=== PATIENT | male | born 1975 | race Caucasian/White ===

== ENCOUNTER 2018-12-05 22:40 | Inpatient (IN) | payer OTHER ==
[~2018-12-05] VITALS: Ht 182.9 cm; Wt 140.6 kg
[2018-12-05 22:47] VITALS: BP 144/90
[2018-12-05] MEDS ORDERED: CYMBALTA20 MG PO (22:50)
[2018-12-05 23:50] LABS: ABSOLUTE BASOPHILS 0.1 thou/uL (0.0-0.2); ABSOLUTE LYMPHOCYTES 1.7 thou/uL (0.8-5.3); ABSOLUTE NEUTROPHILS 15.7 thou/uL (1.6-8.1); BASOPHILS 0.5 %; EOSINOPHILS 0.2 %; HEMATOCRIT 53.4 % (42.0-52.0); HEMOGLOBIN 18.1 gm/dL (14.0-18.0); MCH 29.2 pg (26.0-34.0); MCHC 33.8 g/dL (28.0-37.0); MCV 86.4 fL (80.0-100.0); MONOCYTES 5.6 %; MPV 8.5 fl. (7.2-11.1); NUCLEATED RBCS 0 /100WBC; PLATELET COUNT* 297 thou/uL (150-400); POLYS 84.7 %; RBC 6.18 mil/uL (4.50-6.00); RDW-CV 13.8 % (10.5-14.5); WBC 18.5 thou/uL (4.0-11.0)
[2018-12-05 23:59] LABS: CALCIUM 9.2 mg/dL (8.5-10.1); CREATININE 0.9 mg/dL (0.6-1.3); POTASSIUM 3.7 mmol/L (3.5-5.1)
[2018-12-06 00:05] LABS: ALBUMIN 4.1 g/dL (3.4-5.0); TOTAL BILIRUBIN 0.8 mg/dL (<0.1-1.0); TOTAL PROTEIN 7.9 g/dL (6.4-8.2)
--- NOTE | 2018-12-06 01:31 | NUR ---
REPORT GIVEN. PT BEING ADMITTED TO ROOM 107.
[2018-12-06 01:33] VITALS: BP 122/79
[2018-12-06 01:34] VITALS: BP 122/79
[2018-12-06 01:45] VITALS: BP 131/77
--- NOTE | 2018-12-06 05:00 | NUR ---
PATIENT ARRIVED ON FLOOR AT ABOUT 0130 FROM ER. PATIENT ADMISSION HISTORY AND ASSESSMENT WAS COMPLETED CHARTED. IV FLUIDS WERE STARTED ORDERED. PATIENT WAS GIVEN PAIN AND NAUSEA MEDICINE NEEDED. WILL CONTINUE TO MONITOR.
[2018-12-06 12:47] LABS: ABSOLUTE EOSINOPHILS 0.1 thou/uL (0.0-0.7); ABSOLUTE LYMPHOCYTES 1.5 thou/uL (0.8-5.3); ABSOLUTE MONOCYTES 1.1 thou/uL (0.0-1.2); ABSOLUTE NEUTROPHILS 11.6 thou/uL (1.6-8.1); BASOPHILS 0.3 %; EOSINOPHILS 0.4 %; HEMATOCRIT 51.7 % (42.0-52.0); HEMOGLOBIN 17.4 gm/dL (14.0-18.0); LYMPHOCYTES 10.8 %; MCH 29.3 pg (26.0-34.0); MCHC 33.6 g/dL (28.0-37.0); MCV 87.3 fL (80.0-100.0); MONOCYTES 7.7 %; MPV 8.4 fl. (7.2-11.1); NUCLEATED RBCS 0 /100WBC; PLATELET COUNT* 252 thou/uL (150-400); POLYS 80.8 %; RBC 5.92 mil/uL (4.50-6.00); RDW-CV 13.9 % (10.5-14.5); WBC 14.4 thou/uL (4.0-11.0)
[2018-12-06 12:58] LABS: ALBUMIN 3.5 g/dL (3.4-5.0); CALCIUM 8.5 mg/dL (8.5-10.1); CREATININE 0.8 mg/dL (0.6-1.3); MAGNESIUM 2.2 mg/dL (1.8-2.4); POTASSIUM 4.1 mmol/L (3.5-5.1); TOTAL BILIRUBIN 0.9 mg/dL (<0.1-1.0)
[2018-12-06 15:57] VITALS: BP 131/73
--- NOTE | 2018-12-06 17:26 | NUR ---
PT UP IN HALLS WITH STEADY GAIT. PT CONTINUES TO REPORT ABD PAIN. TOLERATING ONLY SMALL AMTS OF CLEAR LIQUIDS
[2018-12-07 02:05] LABS: GLYCOHEMOGLOBIN (HGB A1C) 5.2 % (4.8-5.6)
[2018-12-07 04:03] LABS: HEMATOCRIT 48.8 % (42.0-52.0); HEMOGLOBIN 16.1 gm/dL (14.0-18.0); MCH 29.1 pg (26.0-34.0); MPV 8.8 fl. (7.2-11.1); RBC 5.54 mil/uL (4.50-6.00); RDW-CV 13.9 % (10.5-14.5); WBC 13.3 thou/uL (4.0-11.0)
[2018-12-07 04:27] LABS: ALBUMIN 3.2 g/dL (3.4-5.0); ALKALINE PHOSPHATASE 54 U/L (46-116); ANION GAP 6 mmol/L (7-16); BUN 7 mg/dL (7-18); CALCIUM 8.3 mg/dL (8.5-10.1); CHLORIDE 102 mmol/L (98-107); CHOLESTEROL 119 mg/dL (<200); CO2 29 mmol/L (21-32); CREATININE 0.8 mg/dL (0.6-1.3); GLUCOSE 64 mg/dL (70-99); HDL CHOLESTEROL 23 mg/dL (>40); LDL CHOLESTEROL 85 mg/dL (<100); MAGNESIUM 2.2 mg/dL (1.8-2.4); POTASSIUM 3.6 mmol/L (3.5-5.1); SERUM ASSESSMENT CLEAR; SGOT 23 U/L (15-37); SGPT 35 U/L (30-65); SODIUM 137 mmol/L (136-145); TC:HDL 5.2 Ratio (Not establshd); TOTAL BILIRUBIN 1.2 mg/dL (<0.1-1.0); TOTAL PROTEIN 6.7 g/dL (6.4-8.2); TRIGLYCERIDE 55 mg/dL (<150); VLDL 11 mg/dL (<40)
--- NOTE | 2018-12-07 05:59 | NUR ---
PATIENT SLEPT PART OF THE NIGHT. PATIENT WAS GIVEN PAIN AND NAUSEA MEDICINE TWICE THIS SHIFT. PATIENT INSTRUCTED HE STILL IS ONLY TO BE MAINLY ICE CHIPS WITH A FEW SIPS NOT DRINKING ALOT OF WATER YET. WILL CONTINUE TO MONITOR.
[2018-12-07 07:59] VITALS: BP 122/63
[2018-12-07 09:33] LABS: DIRECT BILIRUBIN 0.2 mg/dL (<0.1-0.3); TOTAL BILIRUBIN 0.9 mg/dL (<0.1-1.0)
--- NOTE | 2018-12-07 16:41 | NUR ---
Pt lives in an apt with spouse and children. No DME. No known history of HH or SNF. SW to continue to follow to complete further assessment and assist with dc planning if needs arise.
[2018-12-07 17:06] VITALS: BP 127/72
--- NOTE | 2018-12-07 17:24 | NUR ---
PT A&Ox4. VITALS STABLE. UP AD KESHAWN. IV PATENT. MINIMAL PAIN, DENIED PAIN MEDS. DENIED NAUSEA. TOLERATING SOLID FOOD. CALL LIGHT WITHIN REACH. WILL CONTINUE TO MONITOR.
[2018-12-07 20:00] VITALS: BP 129/64
[2018-12-08 04:24] LABS: ALBUMIN 3.1 g/dL (3.4-5.0); CALCIUM 8.3 mg/dL (8.5-10.1); CREATININE 0.8 mg/dL (0.6-1.3); HEMATOCRIT 45.8 % (42.0-52.0); HEMOGLOBIN 15.4 gm/dL (14.0-18.0); MAGNESIUM 2.2 mg/dL (1.8-2.4); MCH 29.1 pg (26.0-34.0); MCHC 33.7 g/dL (28.0-37.0); MCV 86.5 fL (80.0-100.0); MPV 8.4 fl. (7.2-11.1); POTASSIUM 3.4 mmol/L (3.5-5.1); RBC 5.3 mil/uL (4.50-6.00); RDW-CV 13.6 % (10.5-14.5); TOTAL BILIRUBIN 0.6 mg/dL (<0.1-1.0); TOTAL PROTEIN 6.7 g/dL (6.4-8.2); WBC 11.5 thou/uL (4.0-11.0)
--- NOTE | 2018-12-08 06:10 | NUR ---
PT SLEPT WELL OVERNIGHT WITH FAMILY AT BEDSIDE. TEMP MAX 99.8 OVERNIGHT, TYLENOL GIVEN PER PT REQUEST. HYDROCODONE GIVEN X1 FOR CO ABD PAIN WITH GOOD RESULT. TOLERATING FLUIDS AND JELLO WITHOUT N/V. UP AD KESHAWN. IV SL R HAND. ABLE TO USE CALL LITE AND MAKE NEEDS KNOWN.
[2018-12-08] MEDS ORDERED: HYDROCODON-ACE1 EAC7 PO (08:19)
[2018-12-08 11:04] VITALS: BP 129/64
[2018-12-08 11:07] VITALS: BP 129/64
[2018-12-08 13:33] VITALS: BP 129/64
[2018-12-08 13:35] VITALS: BP 129/64
[2018-12-08 13:49] VITALS: BP 129/64
--- NOTE | 2018-12-08 14:48 | EKG ---
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
[2018-12-08 21:10] LABS: IgG 1010 mg/dL (700-1600)
[2018-12-09 11:11] LABS: ANA INTERPRETATION Negative (Negative)
== END 2018-12-08 13:45 | disposition home or self-care (01) | DRG 439 ==
LOC: M.ERS 22:40 → M.ORTHSURG 12-06 00:47 → M.TBA-ER 12-06 00:47 → M.ORTHSURG 12-06 01:42
PROVIDERS: Emergency Medicine; Internal Medicine; Internal Medicine Gastroenterology; ADMIT Family Medicine
DX: K85.90 Acute pancreatitis without necrosis or infection, unspecified (principal); R65.10 Systemic inflammatory response syndrome (SIRS) of non-infectious origin without acute organ dysfunction; M79.7 Fibromyalgia; E66.01 Morbid (severe) obesity due to excess calories; M47.819 Spondylosis without myelopathy or radiculopathy, site unspecified; K86.1 Other chronic pancreatitis; K29.80 Duodenitis without bleeding; K21.9 Gastro-esophageal reflux disease without esophagitis; E80.6 Other disorders of bilirubin metabolism; K64.9 Unspecified hemorrhoids; Z68.41 Body mass index [BMI] 40.0-44.9, adult; Z88.0 Allergy status to penicillin; Z90.49 Acquired absence of other specified parts of digestive tract; Z87.891 Personal history of nicotine dependence

== ENCOUNTER 2019-12-27 20:20 | Emergency (ER) | payer OTHER ==
[~2019-12-27] VITALS: Ht 188 cm; Wt 138.3 kg
[~2019-12-27 20:20] MED LIST: CYMBALTA20 MG PO; HYDROCODON-ACE1 EAC7 PO
[2019-12-27] MEDS ORDERED: NORCO 5-325 TA1 EAC2 PO (23:44)
[2019-12-27] MEDS ORDERED: IBUPROFEN 800800 M1 PO (23:44)
[2019-12-27] MEDS ORDERED: FLEXERIL PO (23:44)
[2019-12-27 23:55] VITALS: BP 148/80
== END 2019-12-27 23:55 | disposition home or self-care (01) ==
LOC: M.ERS 20:20
DX: S16.1XXA Strain of muscle, fascia and tendon at neck level, initial encounter (principal); E66.01 Morbid (severe) obesity due to excess calories; M79.7 Fibromyalgia; Z88.0 Allergy status to penicillin; Z79.899 Other long term (current) drug therapy; Z90.49 Acquired absence of other specified parts of digestive tract; V49.88XA Car occupant (driver) (passenger) injured in other specified transport accidents, initial encounter; Y93.89 Activity, other specified; Y92.413 State road as the place of occurrence of the external cause; Y99.9 Unspecified external cause status

== ENCOUNTER 2020-03-15 11:28 | Inpatient (IN) | payer OTHER ==
[~2020-03-15] VITALS: Ht 188 cm; Wt 144.7 kg
[~2020-03-15 11:28] MED LIST changes: +FLEXERIL PO; +IBUPROFEN 800800 M1 PO; +NORCO 5-325 TA1 EAC2 PO
[2020-03-15 11:38] VITALS: BP 139/71
[2020-03-15] MEDS ORDERED: LISINOPRIL10 MG (11:40)
[2020-03-15 11:58] LABS: ABSOLUTE EOSINOPHILS 0.1 thou/uL (0.0-0.7); ABSOLUTE MONOCYTES 0.8 thou/uL (0.0-1.2); ABSOLUTE NEUTROPHILS 8.8 thou/uL (1.6-8.1); BASOPHILS 0.4 %; EOSINOPHILS 0.6 %; HEMATOCRIT 50.1 % (42.0-52.0); HEMOGLOBIN 17.1 gm/dL (14.0-18.0); LYMPHOCYTES 17.2 %; MCH 30.2 pg (26.0-34.0); MCHC 34.2 g/dL (28.0-37.0); MCV 88.1 fL (80.0-100.0); MONOCYTES 6.5 %; MPV 8.9 fl. (7.2-11.1); NUCLEATED RBCS 0 /100WBC; PLATELET COUNT* 245 thou/uL (150-400); POLYS 75.3 %; RBC 5.68 mil/uL (4.50-6.00); WBC 11.7 thou/uL (4.0-11.0)
[2020-03-15 12:09] LABS: CALCIUM 9.8 mg/dL (8.5-10.1); CREATININE 0.8 mg/dL (0.6-1.3); POTASSIUM 3.8 mmol/L (3.5-5.1)
[2020-03-15 12:13] LABS: TOTAL BILIRUBIN 0.8 mg/dL (<0.1-1.0); TOTAL PROTEIN 7.9 g/dL (6.4-8.2)
[2020-03-15 13:38] LABS: URINE BILIRUBIN NEGATIVE (Negative); URINE BLOOD NEGATIVE (Negative); URINE CLARITY CLEAR; URINE COLOR YELLOW; URINE GLUCOSE-RANDOM NEGATIVE (Negative); URINE KETONES NEGATIVE (Negative); URINE LEUKOCYTES-REFLEX NEGATIVE (Negative); URINE NITRITE-REFLEX NEGATIVE (Negative); URINE PROTEIN NEGATIVE (Negative); URINE UROBILINOGEN 0.2 E.U./dl (0.2-1.0)
[2020-03-15 13:45] LABS: AMP/METHAMP Negative (Negative); BARBITURATES Negative (Negative); BENZODIAZEPINES Negative (Negative); COCAINE Negative (Negative); METHADONE Negative (Negative); OPIATES Negative (Negative); PCP Negative (Negative); THC Negative (Negative)
--- NOTE | 2020-03-15 16:36 | EKG ---
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1975 Requested By: Sabino Kirk Order Number: [id number] MD: Sarah Trevino Measurements Intervals [place] Rate: 77 P: 39 PA: 156 QRS: 84 QRSD: 96 T: -5 QT: 380 QTc: 431 Interpretive Statements Sinus rhythm Abnormal R-wave progression, late transition Borderline T abnormalities, inferior leads Baseline wander in lead(s) V2,V3,V4,V5,V6 Compared to ECG 12/05/2018 22:58:15 T-wave abnormality now present Electronically Signed On 03-15-2020 16:36:26 [employer] TEACH[employer] by Sarah Trevino [email or web address] <ELECTRONICALLY SIGNED> By: Sarah Trevino MD, [facility] 03/15/20 1636 1145 1145 Sarah Trevino MD, [facility] /EPI
[2020-03-15 17:51] VITALS: BP 138/70
[2020-03-15 20:00] VITALS: BP 130/70
[2020-03-15 20:23] VITALS: BP 159/86
[2020-03-16 04:46] LABS: HEMATOCRIT 47.5 % (42.0-52.0); HEMOGLOBIN 16.2 gm/dL (14.0-18.0); MCH 29.9 pg (26.0-34.0); MCV 87.9 fL (80.0-100.0); MPV 8.3 fl. (7.2-11.1); RBC 5.41 mil/uL (4.50-6.00); RDW-CV 13.8 % (10.5-14.5); WBC 14.7 thou/uL (4.0-11.0)
[2020-03-16 05:27] LABS: ALBUMIN 3.4 g/dL (3.4-5.0); CALCIUM 8.8 mg/dL (8.5-10.1); CREATININE 0.8 mg/dL (0.6-1.3); MAGNESIUM 2.1 mg/dL (1.8-2.4); POTASSIUM 3.3 mmol/L (3.5-5.1); TOTAL PROTEIN 7.4 g/dL (6.4-8.2)
--- NOTE | 2020-03-16 06:49 | NUR ---
ASSUMED CARE OF PT AT APPROX 2014. PT A&OX4, VSS ON ROOM AIR - CPAP WHILE SLEEPING, IV FLUIDS INFUSING ORDERED, PAIN MEDS REQUESTED AND GIVEN ORDERED, PT UP WITH ASSIST. HOURLY ROUNDINGS COMPLETE, WILL CONTINUE TO MONITOR.
[2020-03-16 08:59] VITALS: BP 135/84
--- NOTE | 2020-03-16 10:01 | NUR ---
Spoke to pt in his room. Pt lives with his and children. No DME hx or needs identified. No HH hx. Shared [employer] program and rep would be coming to interview him. Pt states his health insurance starts 03/17/20. Will follow until discharged for any new identified needs.
--- NOTE | 2020-03-16 17:30 | NUR ---
PT A&Ox4. VITALS STABLE. IV PATENT, INFUSING. ABD PAIN PARTIALLY CONTROLLED WITH MORPHINE. TYLENOL GIVEN FOR HEADACHE. UP AD KESHAWN. DENIED NAUSEA. NPO EXCEPT FOR MEDS. CALL LIGHT WITHIN REACH. WILL CONTINUE TO MONITOR.
[2020-03-16 21:09] VITALS: BP 132/67
[2020-03-17 03:06] LABS: HEPATITIS B SURFACE AG Negative (Negative)
[2020-03-17 04:04] LABS: HEMATOCRIT 41.3 % (42.0-52.0); MCH 30.2 pg (26.0-34.0); MCHC 34.2 g/dL (28.0-37.0); MCV 88.3 fL (80.0-100.0); MPV 7.7 fl. (7.2-11.1); RBC 4.68 mil/uL (4.50-6.00); RDW-CV 13.5 % (10.5-14.5); WBC 9.7 thou/uL (4.0-11.0)
[2020-03-17 04:40] LABS: HEMOGLOBIN 14.1 gm/dL (14.0-18.0)
[2020-03-17 04:48] LABS: ALBUMIN 2.8 g/dL (3.4-5.0); CALCIUM 8.2 mg/dL (8.5-10.1); CREATININE 0.8 mg/dL (0.6-1.3); MAGNESIUM 1.9 mg/dL (1.8-2.4); POTASSIUM 3.6 mmol/L (3.5-5.1); TOTAL BILIRUBIN 1.6 mg/dL (<0.1-1.0); TOTAL PROTEIN 6.4 g/dL (6.4-8.2)
--- NOTE | 2020-03-17 04:53 | NUR ---
PT A&O, VSS ON ROOM AIR - CPAP WHILE SLEEPING, PT UP AD KESHAWN, IV FLUIDS INFUSING ORDERED, PAIN MEDS REQUESTED AND GIVEN ORDERED. PT SLEEPING WELL, HOURLY ROUNDINGS COMPLETE, WILL CONTINUE TO MONITOR.
[2020-03-17 08:37] VITALS: BP 121/69
[2020-03-17 16:35] VITALS: BP 146/76
--- NOTE | 2020-03-17 18:06 | NUR ---
PATIENT CURRENTLY LYING IN BED RESTING. HAS C/O OF ABDOMINAL PAIN INTERMITTENLY DURING SHIFT AND HAS RECEIVED PRN PAIN MEDICATION WITH EFFECTIVE RESULTS. PATIENT WAS UPGRADED TO CLEAR LIQUID DIET TODAY AND HAS TOLERATED WELL THUS FAR. PATIENT DENIES ANY NEEDS AT THIS TIME.
[2020-03-17 20:22] VITALS: BP 151/75
[2020-03-18 04:37] LABS: HEMATOCRIT 40.3 % (42.0-52.0); HEMOGLOBIN 14.1 gm/dL (14.0-18.0); MCH 30.5 pg (26.0-34.0); MCHC 34.9 g/dL (28.0-37.0); MCV 87.4 fL (80.0-100.0); RBC 4.61 mil/uL (4.50-6.00); RDW-CV 13.5 % (10.5-14.5); WBC 9.5 thou/uL (4.0-11.0)
[2020-03-18 05:07] LABS: CALCIUM 8.7 mg/dL (8.5-10.1); CREATININE 0.7 mg/dL (0.6-1.3); MAGNESIUM 2.1 mg/dL (1.8-2.4); POTASSIUM 3.3 mmol/L (3.5-5.1); TOTAL PROTEIN 6.8 g/dL (6.4-8.2)
--- NOTE | 2020-03-18 05:47 | NUR ---
PT A&O, VSS ON ROOM AIR, PT UP AD KESHAWN, IV FLUIDS INFUSING ORDERED, IV PAIN MED REQUESTED AND GIVEN ORDERED. PT SLEEPING WELL, WILL CONTINUE TO MONITOR.
[2020-03-18 07:57] VITALS: BP 128/76
[2020-03-18 16:41] VITALS: BP 144/78
--- NOTE | 2020-03-18 18:39 | NUR ---
PATIENT CURRENTLY LYNG IN BED. HAS REQUIRED PRN PAIN MEDICATION X3 AND NAUSEA MEDICATION X2 DURING THIS SHIFT. PATIENT CHANGED TO HEART HEALTHY DIET TODAY AND IS SLOWLY TRYING TO ADVANCE HOWEVER COMPLAINS THAT IT "FEELS SO HEAVY" AFTER TAKING A FEW BITES. PATIENT TO HAVE MRI ON 03/20.
[2020-03-18 20:00] VITALS: BP 134/93
[2020-03-19 03:57] LABS: CALCIUM 8.9 mg/dL (8.5-10.1); CREATININE 0.7 mg/dL (0.6-1.3); POTASSIUM 3.5 mmol/L (3.5-5.1)
[2020-03-19 04:03] LABS: ABSOLUTE EOSINOPHILS 0.2 thou/uL (0.0-0.7); ABSOLUTE LYMPHOCYTES 1.8 thou/uL (0.8-5.3); ABSOLUTE MONOCYTES 0.7 thou/uL (0.0-1.2); ABSOLUTE NEUTROPHILS 5.5 thou/uL (1.6-8.1); BASOPHILS 0.4 %; EOSINOPHILS 2.4 %; HEMATOCRIT 42.3 % (42.0-52.0); HEMOGLOBIN 14.4 gm/dL (14.0-18.0); LYMPHOCYTES 21.7 %; MCH 29.6 pg (26.0-34.0); MCHC 34.1 g/dL (28.0-37.0); MONOCYTES 8.4 %; MPV 8.2 fl. (7.2-11.1); NUCLEATED RBCS 0 /100WBC; PLATELET COUNT* 250 thou/uL (150-400); POLYS 67.1 %; RBC 4.87 mil/uL (4.50-6.00); WBC 8.3 thou/uL (4.0-11.0)
--- NOTE | 2020-03-19 04:51 | NUR ---
ASSUMED PT CARE AT 1930. PT ALERT AND ORIENTED X4, POLITE AND COOPERATIVE WITH CARES. PRN PAIN MEDICATION GIVEN FOR ABDOMINAL PAIN PER MAR. PIV INFUSING TO LEFT HAND. WEARS HOME CPAP OVERNIGHT. UP AD KESHAWN. SCHEDULED FOR MRI ON 03/20. USES CALL LIGHT APPROPRIATELY. HOURLY ROUNDING IN PROGRESS, WILL CONTINUE TO MONITOR.
[2020-03-19 07:52] VITALS: BP 140/72
[2020-03-19 16:24] VITALS: BP 145/76
--- NOTE | 2020-03-19 18:27 | NUR ---
PATIENT CURRENTLY LYING IN BED, RECEIVED PRN MORPHINE LAST AT APPROX 1745. PATIENT HAS C/O MORE PAIN/DISCOMFORT THIS SHIFT AND HAS DECLINED PO PAIN MEDICATION HE STATES IT "SITS HEAVY" AND EVEN REQUESTED GOING BACK TO A LIQUID DIET THIS SHIFT. PATIENT'S POTASSIUM REPLACED (3.5 THIS A.M.) AND AFTER PROTOCOL DOSE POTASSIUM IS 3.7. PATIENT DECLINES ANY NEEDS AT THIS TIME.
[2020-03-19 19:58] VITALS: BP 141/73
--- NOTE | 2020-03-20 05:07 | NUR ---
PAIN STILL AN ISSUE, RECEIVED IV MORPHINE/ZOFRAN FOR COMFORT THROUGH SHIFT. HE WAS ABLE TO SLEEP MOST OF THE NIGHT. UP AD KESHAWN, ROOM AIR, ALERT AND ORIENTED. RECEIVED ALL MEDS SCHEDULED. TAKING SIPS OF WATER, SAYS ABDOMINAL PAIN HAS A LOT OF PRESSURE AND BOUNDING AND EATING OR DRINKING MAKES IT WORSE. HE HAS BEEN NPO SINCE MIDNIGHT, MRI SCHEDULED FOR AM. COMPLIANT WITH ORDERS.
[2020-03-20 08:10] VITALS: BP 111/63
--- NOTE | 2020-03-20 11:30 | NUR ---
PT.TO HAVE MRCP TODAY. LIPASE STILL 3900. WILL CONTINUE TO FOLLOW . PT.SHOULD HAVE NO NEEDS AT DISCHARGE.
--- NOTE | 2020-03-20 13:36 | NUR ---
Nutrition: Pt admitted with acute pancreatitis. Seen for BMI >40. Wt has been ~310#, and today's bed wt is recorded as 319# with a BMI recorded as 41.1. Please reweigh for accuracy. Pt was on heart healthy diet, now NPO. Getting MRCP. Labs: lipase trending back down 3913, BG 113, alb 3, prealb 13.1. No intake records. NPO currently. Hopeful to advance diet in timely manner and good tolerance. Otherwise mild nutrition risk at this time.
[2020-03-20 16:25] VITALS: BP 129/58
--- NOTE | 2020-03-20 17:25 | NUR ---
PATIENT ALERT AND ORIENTED X 4. VITAL SIGNS STABLE ON ROOM AIR. UP INDEPENDENTLY IN ROOM. IV PATENT WITH FLUIDS INFUSING. PAIN BEING MANAGED WITH IV AND PO MEDICATION. NAUSEA BEING MANAGED WITH IV MEDICATION. HOURLY ROUNDS MAINTAINED THROUGHOUT THE SHIFT. CALL LIGHT WITHIN REACH. NURSING WILL CONTINUE TO MONITOR.
[2020-03-20 20:00] VITALS: BP 130/68
[2020-03-21 04:29] LABS: HEMATOCRIT 40.8 % (42.0-52.0); HEMOGLOBIN 14.4 gm/dL (14.0-18.0); MCH 30.3 pg (26.0-34.0); MCHC 35.3 g/dL (28.0-37.0); MPV 7.6 fl. (7.2-11.1); RBC 4.75 mil/uL (4.50-6.00); RDW-CV 13.1 % (10.5-14.5)
--- NOTE | 2020-03-21 04:54 | NUR ---
PATIENT SLEPT WELL DURING THIS SHIFT. PT UP AD KESHAWN TO BATHROOM. PT REQUEST PAIN MEDICATION X2 DURING THIS SHIFT. MORPHINE 4MG IV GIVEN. PT WITH FLUIDS INFUSING PER DR ORDER. PT ON ROOM AIR. PT IS NPO. FREQUENTLY USED ITEMS AND CALL LIGHT WITHIN REACH. SIDERAILS UPX2. WILL CONTINUE TO MONITOR.
[2020-03-21 05:01] LABS: ALBUMIN 3.5 g/dL (3.4-5.0); CALCIUM 9.9 mg/dL (8.5-10.1); CREATININE 0.7 mg/dL (0.6-1.3); MAGNESIUM 2.3 mg/dL (1.8-2.4); POTASSIUM 3.3 mmol/L (3.5-5.1); TOTAL BILIRUBIN 0.9 mg/dL (<0.1-1.0); TOTAL PROTEIN 7.6 g/dL (6.4-8.2)
[2020-03-21 07:25] VITALS: BP 139/63
[2020-03-21 16:12] VITALS: BP 130/87
--- NOTE | 2020-03-21 17:04 | NUR ---
PT REMAINED ALERT AND ORIENTED. PT RESTING IN BED., PT C/O ABD PAIN AFTER EATING CLEAR LIQUIDS. PT HAD BM TODAY. AWAITING GI DOC TO SEE PATIENT AND GO OVER CARE WITH FAMILY. HOURLY ROUNDING COMPLETED.
[2020-03-21 20:45] VITALS: BP 116/67
--- NOTE | 2020-03-22 07:06 | NUR ---
PT CO ABD PAIN AND NAUSEA DUE TO HUNGER AT START OF SHIFT. ZOFRAN GIVEN WITH GOOD RESULT. DIET ADVANCED PER PT REQUEST AND PUDDING GIVEN ALONG WITH MYLANTA-TOLERATED WELL. UP AD KESHAWN IN ROOM. AM LAB. RFA SL IV. ABLE TO USE CLAL LITE AND MAKE NEEDS KNOWN. HOPEFULD FOR DISCHARGE TODAY.
[2020-03-22] MEDS ORDERED: ZOFRAN ODT4 MG PO (07:56)
[2020-03-22 08:05] VITALS: BP 121/68
[2020-03-22 09:58] VITALS: BP 121/68
--- NOTE | 2020-03-22 10:45 | NUR ---
PATIENT DISCHARGED TO HOME. DISCHARGE PAPERS REVIEWED AND SIGNED. PRESCRIPTION AND INFORMATION SHEETS GIVEN. IV REMOVED. PATIENT DENIES ANY FURTHER NEEDS. PATIENT TAKEN BY WHEELCHAIR TO EXIT. LEFT WITH .
[2020-03-22 10:50] VITALS: BP 121/68
== END 2020-03-22 10:45 | disposition home or self-care (01) | DRG 439 ==
LOC: M.ERS 11:28 → M.3W 13:51 → M.TBA-ER 13:51 → M.3W 13:51
PROVIDERS: Emergency Medicine Emergency Medical Services; Internal Medicine Gastroenterology; Nurse Practitioner Family; ADMIT Internal Medicine; ATTEND Internal Medicine
PROC: 5A09357 Assistance with Respiratory Ventilation, Less than 24 Consecutive Hours, Continuous Positive Airway Pressure (ICD-10-PCS; principal; 2020-03-15)
DX: K85.80 Other acute pancreatitis without necrosis or infection (principal); Z68.41 Body mass index [BMI] 40.0-44.9, adult; E66.01 Morbid (severe) obesity due to excess calories; M19.09 Primary osteoarthritis, other specified site; I10 Essential (primary) hypertension; M79.7 Fibromyalgia; Z90.49 Acquired absence of other specified parts of digestive tract; Z88.0 Allergy status to penicillin; Z20.822 Contact with and (suspected) exposure to COVID-19